=== PATIENT | female | born 1985 | race Caucasian/White ===

== ENCOUNTER 2017-06-06 16:40 | Emergency (ER) | payer BC ==
--- NOTE | 2017-06-06 16:53 | UC ---
Dizzy HPI HPI Summary: 31 YEAR OLD FEMALE PRESENTS WITH COMPLAINS OF DIZZINESS. OF NOTE SHE FELL AND HIT HER HEAD A MONTH AGO AND DEVELOPED A CONCUSSION. - History Of Current Complaint Stated Complaint: DIZZINESS X 1 WEEK Time Seen by Provider: 06/06/17 16:53 Hx Obtained From: Patient Hx Last Menstrual Period: does not get periords/had ovarian drilling 12/2013 for polycystic ovary Onset/Duration: Lasting Days Timing: Constant Severity Initially: Moderate Severity Currently: Moderate Pain Scale Used: 0-10 Numeric - 0 - Allergies/Home Medications Allergies/Adverse Reactions: Allergies Allergy/AdvReac Type Severity Reaction Status Date / Time No Known Allergies Allergy Verified 06/06/17 16:55 Home Medications: Home Medications [id number] [Calcium & Magnesium + Zin 334-134-5 mg] 1 tab PO DAILY 06/06/17 [History Confirmed 06/06/17] Multiple Vitamin [Multi Vitamin] 1 tab PO DAILY 06/06/17 [History Confirmed 02/15] PMH/Surg Hx/FS Hx/Imm Hx Previously Healthy: Yes - Surgical History Surgical History: Yes Surgery Procedure, Year, and Place: ovarian drilling - Family History Known Family History: Positive: Hypertension - Social History Alcohol Use: None Substance Use Type: None Smoking Status (MU): Never Smoked Tobacco - Immunization History Most Recent Influenza Vaccination: [id number] Review of Systems Constitutional: Negative, Fatigue Skin: Negative Eyes: Negative ENT: Negative Respiratory: Negative Cardiovascular: Negative Gastrointestinal: Negative Genitourinary: Negative Motor: Negative Neurovascular: Negative Musculoskeletal: Negative Neurological: Headache, Weakness, Other - DIZZINESS Psychological: Negative All Other Systems Reviewed And Are Negative: Yes Physical Exam Triage Information Reviewed: Yes Vital Signs Reviewed: Yes Eye Exam: Normal ENT Exam: Normal Dental Exam: Normal Neck exam: Normal Neck: Positive: 1 Respiratory Exam: Normal Cardiovascular: Positive: Bradycardia Abdominal Exam: Normal Musculoskeletal Exam: Normal Neurological Exam: Normal Psychological Exam: Normal Skin Exam: Normal Dizzy Course/Dx - Differential Dx/Diagnosis Provider Diagnoses: BRADYCARDIA. DIZZINESS Discharge - Discharge Plan Condition: Stable Disposition: HOME Patient Education Materials: Bradycardia (ED) Referrals: Albert Villa MD [Primary Care Provider] - Additional Instructions: PATIENT ADVISED TO GO TO ER FOR DIZZINESS AND BRADYCARDIA
[2017-06-06 17:35] VITALS: BP 106/79
== END 2017-06-06 17:46 | disposition home or self-care (01) ==
LOC: UCCORT 16:40
DX: R00.1 Bradycardia, unspecified (principal); R42 Dizziness and giddiness
CPT/HCPCS: 93005; 99212; G0463